=== PATIENT | male | born 1960 | race Two or more races ===

== ENCOUNTER 2018-02-24 13:25 | Emergency (ER) | payer OTHER ==
[~2018-02-24] VITALS: Ht 165.1 cm; Wt 92.1 kg
--- NOTE | 2018-02-24 13:30 | NUR ---
[facility] FROM [facility] FOR SWOLLEN TESTICLES NOTED TODAY. PT HAS A H/O MALIGNANT NEOPLASM OF PROSTATE. A/O X 1, BREATHING EVEN AND UNLABORED. NO SOB, NAD, VITALS STABLE. SAFEY AND COMFORT MEASURES IN PLACE. AWAITING MD ORDERS.
--- NOTE | 2018-02-24 13:55 | NUR ---
NEW IV STARTED ON RAC, 18G. BLOOD DRAWN AND SENT TO LAB.
[2018-02-24] MEDS ORDERED: ACETAMINOPHEN 650 MG/20.3 ML UDC PO ONE (14:30)
[2018-02-24 14:31] LABS: BASOPHILS % (AUTO) 0.3 % (0.0-2.0); EOSINOPHILS % (AUTO) 0.3 % (0.0-6.0); HEMATOCRIT 24 % (39-51); HEMOGLOBIN 8.5 g/dL (13.5-17.5); LYMPHOCYTES # (AUTO) 0.7 /CMM (0.8-4.8); LYMPHOCYTES % (AUTO) 5.5 % (20.0-44.0); MEAN CORPUSCULAR HGB CONC 36 g/dl (31.0-36.0); MEAN CORPUSCULAR VOLUME 82 fL (80-96); MONOCYTES # (AUTO) 1.1 /CMM (0.1-1.30); MONOCYTES % (AUTO) 8.7 % (2.0-12.0); NEUTROPHILS # (AUTO) 10.6 /CMM (1.8-8.9); NEUTROPHILS % (AUTO) 85.2 % (43.0-81.0); PLATELET COUNT (AUTO) 373 /CMM (150-450); RDW COEFFICIENT OF VARIATION 13.3 (11.5-15.0); RED BLOOD CELL COUNT(AUTO) 2.91 MIL/uL (4.5-6.0); WHITE BLOOD COUNT (AUTO) 12.4 K/uL (4.3-11.0)
[2018-02-24] MEDS ORDERED: ACETAMINOPHEN 325 MG TABLET ONE (14:33)
[2018-02-24 14:37] LABS: CALCIUM, SERUM 8.5 mg/dL (8.5-10.1); CARBON DIOXIDE 23 mmol/L (21-32); CHLORIDE 88 mmol/L (98-107); CREATININE 4.4 mg/dL (0.6-1.3); GLUCOSE 137 mg/dL (74-106); POTASSIUM 4.5 mmol/L (3.5-5.1); SODIUM SERUM 123 mmol/L (136-145); UREA NITROGEN, BLOOD 53 mg/dL (7-18)
--- NOTE | 2018-02-24 14:37 | NUR ---
PATIENT MEDICATED PER MD ORDERS.
[2018-02-24 14:40] LABS: INR 1.19 (0.85-1.15)
[2018-02-24 14:42] LABS: ALANINE AMINOTRANSFERASE 18 U/L (12-78); ALBUMIN 2.2 g/dL (3.4-5.0); ALKALINE PHOSPHATASE 149 U/L (46-116); ASPARTATE AMINOTRANSFERASE 31 U/L (15-37); BILIRUBIN,DIRECT 0.3 mg/dL (0.0-0.2); BILIRUBIN,TOTAL 0.5 mg/dL (0.2-1.0); TOTAL PROTEIN, SERUM 7.7 g/dL (6.4-8.2)
[2018-02-24 14:45] LABS: TROPONIN I 0.017 ng/mL (0.00-0.056)
--- NOTE | 2018-02-24 14:58 | NUR ---
PATIENT TAKEN TO CT VIA STRETCHER.
[2018-02-24] MEDS ORDERED: VANCOMYCIN 1 GM in IV D5W 250 ML IV ONE (15:00)
[2018-02-24] MEDS ORDERED: ACETAMINOPHEN 325 MG TABLET PO ONE (15:00)
[2018-02-24] MEDS ORDERED: PIPERACILLIN /TAZOBACTAM 2.25 G in IV D5W 50 ML IV ONE (15:00)
--- NOTE | 2018-02-24 15:06 | NUR ---
PATIENT RETURNED FROM CT IN STABLE CONDITION.
--- NOTE | 2018-02-24 15:29 | NUR ---
US TECH AT BEDSIDE.
--- NOTE | 2018-02-24 15:50 | NUR ---
CALLED [facility]. BROCK IS PAGED PER JIMENA
--- NOTE | 2018-02-24 16:15 | NUR ---
Repaged Dr Krishnan at [facility] Nephrology.
--- NOTE | 2018-02-24 16:38 | NUR ---
Dr Crow on the phone with Dr. Núñez Urology
--- NOTE | 2018-02-24 16:46 | NUR ---
Called Samanta for transportation going to [facility] eta [phone] trip # [id number]
--- NOTE | 2018-02-24 17:03 | NUR ---
Patient going to [facility] Room# 226, accepted by Dr. Adenike Abarca, # for report
--- NOTE | 2018-02-24 17:13 | NUR ---
REPORT GIVEN TO RAJENDRA HARRELL FOR DAMARIS UPON TRANSFER.
[2018-02-24 18:30] VITALS: BP 106/59
--- NOTE | 2018-02-24 18:35 | NUR ---
REPORT GIVEN TO EMT AT BEDSIDE FOR TRANSFER. PATIENT TRANSFERRED TO [facility] VIA AMBULANCE IN STABLE CONDITION.
[2018-03-17] MEDS ORDERED: BICA50TA49 PO (16:04)
== END 2018-02-24 18:35 | disposition short-term general hospital (02) ==
LOC: ER 13:30
DX: N49.2 Inflammatory disorders of scrotum (principal); E87.1 Hypo-osmolality and hyponatremia; N13.39 Other hydronephrosis; N43.3 Hydrocele, unspecified; D64.9 Anemia, unspecified; G40.909 Epilepsy, unspecified, not intractable, without status epilepticus; G30.9 Alzheimer's disease, unspecified; F02.80 Dementia in other diseases classified elsewhere, unspecified severity, without behavioral disturbance, psychotic disturbance, mood disturbance, and anxiety; F20.9 Schizophrenia, unspecified; E78.5 Hyperlipidemia, unspecified; I10 Essential (primary) hypertension; Z85.46 Personal history of malignant neoplasm of prostate; Z85.9 Personal history of malignant neoplasm, unspecified
CPT/HCPCS: 36415; 71045-TC; 76870-TC; 80048-TC; 80076-TC; 83605-TC; 84484-TC; 85025-TC; 85730-TC; 87040-TC; 87081-TC; A4606; J2543; J3370; J7060; Z7610

== ENCOUNTER 2018-03-16 17:50 | Inpatient (IN) | payer OTHER ==
[~2018-03-16] VITALS: Ht 180.3 cm; Wt 86.6 kg
--- NOTE | 2018-03-16 17:50 | NUR ---
[id number] FROM [facility] FOR TWITCHING STARTED 20 MIN AGO. BS-125. UNABLE TO ASSESS MENTAL STATUS, BREATHING EVEN AND UNLABORED. NO SOB, NAD, VITALS STABLE. SAFETY AND COMFORT MEASURES IN PLACE. AWAITING MD ORDERS.
--- NOTE | 2018-03-16 18:05 | NUR ---
MORA CATHETER CHANGED PER DR. REED. NO IMMEDIATE OUTPUT AT THIS TIME. WILL MONITOR.
[2018-03-16] MEDS ORDERED: PIPERACILLIN /TAZOBACTAM 3.375 G in IV D5W 50 ML IV ONE (18:30)
[2018-03-16] MEDS ORDERED: VANCOMYCIN 1 GM in IV D5W 250 ML IV ONE (18:30)
[2018-03-16] MEDS ORDERED: IV NS 0.9% 1,000 ML BAG IV ONE (18:30)
--- NOTE | 2018-03-16 18:30 | NUR ---
SECOND IV STARTED ON RIGHT HAND, 18G. BLOOD DRAWN AND SENT TO LAB.
[2018-03-16] MEDS ORDERED: QUET400T PO (18:36)
[2018-03-16] MEDS ORDERED: SIMV10TA6 PO (18:36)
[2018-03-16] MEDS ORDERED: BISA10SU8 RC (18:36)
[2018-03-16] MEDS ORDERED: MAGN400O6 PO (18:36)
[2018-03-16] MEDS ORDERED: OMEG1CAP PO (18:36)
[2018-03-16] MEDS ORDERED: ACET-868 PO (18:36)
[2018-03-16] MEDS ORDERED: NA P133E RC (18:36)
[2018-03-16] MEDS ORDERED: ZIPR80CA2 PO (18:36)
--- NOTE | 2018-03-16 18:57 | NUR ---
URINE OBTAINED AND SENT TO LAB. ENTRY LEVEL BUSINESS ANALYST AT BEDSIDE.
[2018-03-16 19:08] LABS: APPEARANCE,URINE Clear (CLEAR); BILIRUBIN,URINE Negative (NEGATIVE); BLOOD, URINE Large Ery/uL (NEGATIVE); COLOR,URINE Yellow (YELLOW); KETONES,URINE Negative (NEGATIVE); LEUKOCYTE ESTERASE ,URINE Large (NEGATIVE); NITRITE, URINE Negative (NEGATIVE); PROTEIN,URINE >=300 mg/dl (NEGATIVE); UGLUCOSE Negative (NEGATIVE); UROBILINOGEN,URINE 0.2 EU/dL (0.2)
[2018-03-16 19:11] LABS: BASOPHILS % (AUTO) 0.5 % (0.0-2.0); EOSINOPHILS % (AUTO) 7.8 % (0.0-6.0); LYMPHOCYTES # (AUTO) 0.8 /CMM (0.8-4.8); MEAN CORPUSCULAR HEMOGLOBIN 29 PG (26.0-33.0); MEAN CORPUSCULAR HGB CONC 34 g/dl (31.0-36.0); MEAN CORPUSCULAR VOLUME 86 fL (80-96); MONOCYTES # (AUTO) 0.7 /CMM (0.1-1.30); MONOCYTES % (AUTO) 8.3 % (2.0-12.0); NEUTROPHILS # (AUTO) 6.6 /CMM (1.8-8.9); NEUTROPHILS % (AUTO) 74.4 % (43.0-81.0); PLATELET COUNT (AUTO) 510 /CMM (150-450); RDW COEFFICIENT OF VARIATION 15.8 (11.5-15.0); RED BLOOD CELL COUNT(AUTO) 2.26 MIL/uL (4.5-6.0); WHITE BLOOD COUNT (AUTO) 8.8 K/uL (4.3-11.0)
[2018-03-16 19:17] LABS: HEMOGLOBIN 6.5 g/dL (13.5-17.5)
--- NOTE | 2018-03-16 19:17 | NUR ---
CALLED [facility] MATERIALS DEVELOPMENT ENGINEER WAS PAGED.
[2018-03-16 19:18] LABS: HEMATOCRIT 19 % (39-51)
[2018-03-16 19:36] LABS: ALANINE AMINOTRANSFERASE 79 U/L (12-78); ALBUMIN 2.1 g/dL (3.4-5.0); ALKALINE PHOSPHATASE 190 U/L (46-116); ASPARTATE AMINOTRANSFERASE 53 U/L (15-37); BILIRUBIN,DIRECT 0.1 mg/dL (0.0-0.2); BILIRUBIN,TOTAL 0.3 mg/dL (0.2-1.0); CALCIUM, SERUM 7.8 mg/dL (8.5-10.1); CARBON DIOXIDE 15 mmol/L (21-32); CHLORIDE 105 mmol/L (98-107); GLUCOSE 112 mg/dL (74-106); SODIUM SERUM 137 mmol/L (136-145); TOTAL PROTEIN, SERUM 7.5 g/dL (6.4-8.2)
[2018-03-16 19:37] LABS: TROPONIN I < 0.017 ng/mL (0.00-0.056)
--- NOTE | 2018-03-16 19:38 | NUR ---
CALLED [facility] NEPHROLOGY , ICT QUALITY ASSURANCE ENGINEER WAS PAGED.
[2018-03-16 19:41] LABS: CREATININE 16.5 mg/dL (0.6-1.3); POTASSIUM 6.9 mmol/L (3.5-5.1); UREA NITROGEN, BLOOD 130 mg/dL (7-18)
--- NOTE | 2018-03-16 19:45 | NUR ---
ASSUMED CARE. RECEIVED REPORT FROM AM SHIFT SHARRI MEIER. PT OBTUNDED, NO ACUTE DOSTRESS NOTED, RESP EVEN AND UNLABORED. PT REMAINS ON CARDIAC MONITORING, CONTINUOUS POX, O2@2l/NC. CALL OIGHT WITHIN REACH. WILL CONTINUE TO MONITOR PT CLOSELY.
[2018-03-16 19:50] LABS: BACTERIA,URINE Moderate /HPF (None Seen); RBC,URINE 21-50 /HPF (0-2); WBC,URINE 81-100 /HPF (0-3)
[2018-03-16 19:51] LABS: SQUAMOUS EPITHELIAL CELL,UR Few /HPF (None Seen); URINE AMORPHOUS URATE Moderate /HPF (None Seen)
--- NOTE | 2018-03-16 20:10 | NUR ---
ER MD SPOKE TO DR. MAKI REGARDING PT ADMISSION.
[2018-03-16 20:26] LABS: INR 1.15 (0.85-1.15)
[2018-03-16] MEDS ORDERED: SODIUM POLYSTYRENE SULFONATE 15 G/60 ML BOTTLE PO ONE (20:30)
[2018-03-16] MEDS ORDERED: Z GUARD REMEDY 2 OZ OINT TP PRN (20:30)
[2018-03-16] MEDS ORDERED: MAGNESIUM HYDROXIDE 30 ML UDC PO PRN (20:30)
[2018-03-16] MEDS ORDERED: MAG HYDROX/AL HYDROX/SIMETH 30 ML UDC PO PRN (20:30)
[2018-03-16] MEDS ORDERED: ACETAMINOPHEN 325 MG TABLET PO PRN (20:30)
[2018-03-16] MEDS ORDERED: IV NS 0.9% 1,000 ML IV PRN (20:30)
[2018-03-16] MEDS ORDERED: ONDANSETRON HCL/PF 4 MG/2 ML VIAL IVP PRN (20:30)
--- NOTE | 2018-03-16 20:36 | NUR ---
PT TRANSPORTED TO RADIOLOGY FOR CT ABD/PELVIS.
--- NOTE | 2018-03-16 20:43 | NUR ---
REPORT CALLED TO TELE 1 SHARRI MARTINEZ. WILL TRANSPORT PT VIA ACLS PROTOCOL.
[2018-03-16] MEDS ORDERED: SODIUM POLYSTYRENE SULFONATE 15 G/60 ML BOTTLE ONE (20:53)
--- NOTE | 2018-03-16 21:03 | NUR ---
PT MEDICATED KAYEXALATE 30GM VIA MN DUE TO PT ALTERED AND UNALBE TO TAKE PO MEDS.
--- NOTE | 2018-03-16 21:14 | NUR ---
PT TRANSPORTED TO TELE 1 VIA ACLS PROTOCOL.
[2018-03-16 21:41] LABS: LYMPHOCYTES % (MANUAL) 16 % (16-48); NEUTROPHILS % (MANUAL) 72 (42-76)
[2018-03-16 21:42] LABS: EOSINOPHILS % (MANUAL) 6 % (0-4); MONOCYTES % (MANUAL) 6 % (0-11.0)
[2018-03-16 21:45] VITALS: BP 127/62
[2018-03-16 22:04] VITALS: BP 100/53
[2018-03-16 22:20] VITALS: BP 98/48
--- NOTE | 2018-03-16 22:30 | NUR ---
ELZA/COTTON CLASSER AIDE NOTES: RECEIVED PT. VIA STRETCHER W/ RN CLAUDETTE AND Jaycob GÓMEZ. PT. IS NON VERBAL, LETHARGIC. RESPONSIVE ONLY TO PAINFUL STIMULI. ON TELE MONITOR W/ SR @ 73. NO FACIAL GRIMACES OR MOANING NOTED. W/ HL ON R AND L HAND G 18 PATENT AND INTACT W/ NO S/S OF INFECTION/INFILTRATION NOTED. W/ O2 @ 2LPM VIA N/C SAT. 97 %. W/ SCROTUM EDEMATOUS. BEDS LOCKED AND IN LOW POSITION. SIDE RAILS PADDED DUE TO SEIZURE PRECAUTION. TRANSFUSED 1 UNIT OF PRBC DUE TO HgB 6.5. NO ADVERSE REACTIONS NOTED. KAYEXALATE GIVEN RECTALLY FOR K 6.9 DR. MAKI AWARE OF PT. LAB VALUES. SISTER OLGA LIDIA VISITED PT. CALL LIGHT W/ REACH. WILL CONTINUE TO MONITOR.
--- NOTE | 2018-03-16 22:32 | NUR ---
Paged Dr. Heath at this time to update on patient's current condition and for orders. Awaiting call back.
[2018-03-16 22:34] VITALS: BP 99/47
[2018-03-16 22:45] VITALS: BP 106/52
--- NOTE | 2018-03-16 22:46 | NUR ---
2239 Dr. Heath called and updated on patient's current condition including neuro status GCS=8, urine outuput of 100ml since pt. came from ED and latest lab results with order to draw stat K+ level and to start pt. on IVF of NS at 100ml/hr, notified her also that blood transfusion is in progress. ELZA status verified with MD, and she said keep pt. in ELZA.
[2018-03-16 23:00] VITALS: BP 111/57
[2018-03-16] MEDS ORDERED: IV NS 0.9% 1,000 ML BAG IV PRN (23:00)
[2018-03-16] MEDS ORDERED: Sodium Bicarbonate 150 MEQ in IV NS 0.9% 1,000 ML IV PRN (23:00)
[2018-03-16] MEDS ORDERED: Calcium Gluconate 1GM/10ML 4.65 MEQ in IV NS 0.9% 50 ML IV ONE (23:00)
[2018-03-16] MEDS ORDERED: Calcium Gluconate 0.465 MEQ/ML VIAL IV ONE (23:46)
[2018-03-16] MEDS ORDERED: SODIUM BICARBONATE SYR 50 MEQ/50 ML DISP.SYRIN ONE (23:47)
[2018-03-17] VITALS (7 sets, daily range): BP systolic 101–139; BP diastolic 57–69
[2018-03-17] MEDS ORDERED: SODIUM POLYSTYRENE SULFONATE 15 G/60 ML BOTTLE RC ONE (00:30)
[2018-03-17] MEDS ORDERED: SODIUM POLYSTYRENE SULFONATE 15 G/60 ML BOTTLE ONE (00:40)
--- NOTE | 2018-03-17 06:00 | NUR ---
ELZA/RN NOTES: PT. MORE ALERT AND VERBALLY RESPONSIVE. WILL CONTINUE TO MONITOR.
[2018-03-17 06:31] LABS: BASOPHILS % (AUTO) 0.5 % (0.0-2.0); EOSINOPHILS % (AUTO) 9.7 % (0.0-6.0); HEMATOCRIT 22 % (39-51); HEMOGLOBIN 7.2 g/dL (13.5-17.5); LYMPHOCYTES # (AUTO) 0.7 /CMM (0.8-4.8); LYMPHOCYTES % (AUTO) 9.2 % (20.0-44.0); MEAN CORPUSCULAR HEMOGLOBIN 30 PG (26.0-33.0); MEAN CORPUSCULAR HGB CONC 34 g/dl (31.0-36.0); MEAN CORPUSCULAR VOLUME 88 fL (80-96); MONOCYTES # (AUTO) 0.8 /CMM (0.1-1.30); MONOCYTES % (AUTO) 9.5 % (2.0-12.0); NEUTROPHILS # (AUTO) 5.7 /CMM (1.8-8.9); NEUTROPHILS % (AUTO) 71.1 % (43.0-81.0); PLATELET COUNT (AUTO) 460 /CMM (150-450); RDW COEFFICIENT OF VARIATION 16.4 (11.5-15.0); RED BLOOD CELL COUNT(AUTO) 2.45 MIL/uL (4.5-6.0)
[2018-03-17 07:16] LABS: CALCIUM, SERUM 8.2 mg/dL (8.5-10.1); MAGNESIUM 2.7 mg/dL (1.8-2.4)
[2018-03-17 07:17] LABS: CREATININE 16.7 mg/dL (0.6-1.3)
--- NOTE | 2018-03-17 07:18 | NUR ---
ELZA/RN NOTES: NO ACUTE CHANGES NOTES DURING THIS SHIFT. REPORT GIVEN TO AM NURSE FOR DAMARIS.
--- NOTE | 2018-03-17 07:30 | NUR ---
INITIAL NOTES: PT ALERT AND ORIENTED X1 ON BED ASLEEP BUT EASILY AROUABLE. ON 2 LMP NC LABS UPDATED THIS AM AFTER MEDICATIONS WILL NOTIFIY . PT ON RN HEDIS SR AT 75. PT HAS NEPHROSTOMY TUBES BILATERALLY. WITH LEFT DRAINAGE BAG PINEDO COLORED 20 ML AND RIGHT TUBE BLOOD COLORED 5 ML. MORA HAS CLEAR URINE YELLOW 15 ML. BED IN LOW POSITION LOCKED AND CALL CHANG NEXT TO PT. WILL CONTINUE TO MONITOR.
[2018-03-17 07:40] LABS: PHOSPHORUS 10.4 mg/dL (2.5-4.9); POTASSIUM 6.5 mmol/L (3.5-5.1)
[2018-03-17] MEDS ORDERED: IV NS 0.9% 1,000 ML IV PRN (08:30)
[2018-03-17] MEDS: PIPERACILLIN /TAZOBACTAM 2.25 G in IV NS 0.9% 50 ML IV SCH ×2 (10:00→18:12)
--- NOTE | 2018-03-17 10:49 | NUR ---
SPOKE WITH CHRISTOPH TO PLACE HD CATH FOR DIALYSIS TODAY. CALED SISTER BEE AND DAYAN FOE CONSENT WAITING FOR CALL BACK. HD CATH 13X24 CM AT BEDSIDE.
--- NOTE | 2018-03-17 11:05 | NUR ---
SISTER GAVE CONSENT IN CHART CHRISTOPH TEXTED WITH OBTAINMENT OF CONSENT
[2018-03-17] MEDS ORDERED: PIPERACILLIN /TAZOBACTAM 4.5 G in IV NS 0.9% 50 ML IV SCH (12:00)
--- NOTE | 2018-03-17 15:41 | NUR ---
SAAD received a call from pt's RN Jay informing SW to speak to the pt's sister and to clarify if pt. has a power of assistant prosecuting attorney. SAAD met with pt's sister Radha and Viktoriya ([facility]) bedside. Pt. is developmentally delayed and has Schizophrenia. According to Radha pt. is with the [facility] and his Agricultural And Forestry Supervisor is Lu Arcos . SAAD inquired with the sister if Lu is the conservator since most of the [facility] clients are conserved. Lu informed SW she is not sure if the [facility] is the conservator. SAAD requested for Radha to call Lu to get some clarity. Radha contacted Lu and left her a voicemail message requesting a call back regarding clarification.
[2018-03-17] MEDS ORDERED: CHOL200026 PO (16:04)
[2018-03-17] MEDS ORDERED: DONE10TA44 PO (16:04)
[2018-03-17] MEDS ORDERED: ASPI-1169 PO (16:04)
[2018-03-17] MEDS ORDERED: MULT-213 PO (16:04)
[2018-03-17] MEDS ORDERED: LAMO150T PO (16:04)
[2018-03-17] MEDS ORDERED: MEMA10TA PO (16:04)
[2018-03-17] MEDS ORDERED: BICA50TA2 PO (16:04)
[2018-03-17] MEDS ORDERED: METO-356 PO (16:04)
--- NOTE | 2018-03-17 19:19 | NUR ---
CLOSING NOTE: PT MORE AWAKE GREETS YOU AT THE DOOR STATES HE IS FEELING BETTER. PT HAS HD CATH 13X24 [address] IN RIGHT GROIN TODAY AND DIALYSIZED FOR 500 ML. RN REPORT GIVEN TO JUNG NURSE CULINARY CHEF AT [facility] AT 1821. PT PIV LINES INTACT NO SWELLING OR REDNESS ON NS DRIP. BED IN LOW POSITION LOCKED.
--- NOTE | 2018-03-17 19:30 | NUR ---
ELZA/RN NOTES: RECEIVED PT. IN BED W/ HOB ELEVATED W/ O2 @ 2LPM VIA N/C SAT. 93-94 %. ALERT X 1-2. VERBALLY RESPONSIVE. DENIES ANY C/O CHEST PAIN OR SOB AT PRESENT. NO FACIAL GRIMACES OR MOANING NOTED. LEFT HAND G 18 PATENT AND INTACT W/ NS @ 100 CC/HR GOING W/ NO S/S OF INFECTION/INFILTRATION NOTED. HAS RIGHT WRIST AND HAND G 18 PATENT AND INTACT W/ NO S/S OF INFECTION/INFILTRATION NOTED. HAS LEFT AND RIGHT CHEST NEPHROSTOMY TUBE W/ RIGHT SIDE SEROSANGUINEOUS FLUID AND LEFT SIDE HAS LIGHT MUDDY COLOR FLUID. HAS A F/C PATENT AND INTACT DRAINING VIA GRAVITY YELLOW URINE. SCROTUM NOTED W/ 4+ EDEMA. CALL LIGHT W/ REACH. ALL NEEDS MEET. BED LOCKED. WILL CONTINUE TO MONITOR.
--- NOTE | 2018-03-17 21:47 | NUR ---
RN NOTE Called [facility] to follow-up on the patient's transport. Reference # [id number]. Was able to speak with Annette from dispatch, Per Annette, ETA is another hour. noted. primary nurse, Erlinda made aware.
--- NOTE | 2018-03-17 23:25 | NUR ---
ELZA/RN NOTES: PARAMEDICS CAME .PT. DISCHARGED IN STABLE CONDITION VIA STRETCHER.
== END 2018-03-17 23:45 | disposition short-term general hospital (02) | DRG 673 ==
LOC: ER 17:56 → TELE-TD 20:29
PROVIDERS: ADMIT Internal Medicine; ATTEND Internal Medicine
PROC: 0JHN3WZ Insertion of Totally Implantable Vascular Access Device into Right Lower Leg Subcutaneous Tissue and Fascia, Percutaneous Approach (ICD-10-PCS; principal; 2018-03-17)
PROC: 06HM33Z Insertion of Infusion Device into Right Femoral Vein, Percutaneous Approach (ICD-10-PCS; 2018-03-17)
PROC: B54BZZA Ultrasonography of Right Lower Extremity Veins, Guidance (ICD-10-PCS; 2018-03-17)
DX: N17.9 Acute kidney failure, unspecified (principal); G93.41 Metabolic encephalopathy; E43 Unspecified severe protein-calorie malnutrition; N39.0 Urinary tract infection, site not specified; J81.1 Chronic pulmonary edema; C79.51 Secondary malignant neoplasm of bone; N13.39 Other hydronephrosis; Z79.82 Long term (current) use of aspirin; F02.80 Dementia in other diseases classified elsewhere, unspecified severity, without behavioral disturbance, psychotic disturbance, mood disturbance, and anxiety; G40.909 Epilepsy, unspecified, not intractable, without status epilepticus; G30.9 Alzheimer's disease, unspecified; F20.9 Schizophrenia, unspecified; Z79.899 Other long term (current) drug therapy; N13.30 Unspecified hydronephrosis; K21.9 Gastro-esophageal reflux disease without esophagitis; B96.89 Other specified bacterial agents as the cause of diseases classified elsewhere; N50.89 Other specified disorders of the male genital organs; R62.50 Unspecified lack of expected normal physiological development in childhood; M85.9 Disorder of bone density and structure, unspecified; I12.9 Hypertensive chronic kidney disease with stage 1 through stage 4 chronic kidney disease, or unspecified chronic kidney disease; N18.9 Chronic kidney disease, unspecified; C61 Malignant neoplasm of prostate; Z93.6 Other artificial openings of urinary tract status; N13.1 Hydronephrosis with ureteral stricture, not elsewhere classified; D63.8 Anemia in other chronic diseases classified elsewhere; E83.39 Other disorders of phosphorus metabolism; E78.5 Hyperlipidemia, unspecified; E87.5 Hyperkalemia
CPT/HCPCS: 36415; 71045-TC; 80048-TC; 80074; 80076-TC; 81000-TC; 83605-TC; 83735-TC; 84100-TC; 84132-TC; 84484-TC; 85025-TC; 85730-TC; 86706; 86709-TC; 86850-TC; 86921-TC; 87040-TC; 87081-TC; 87086-TC; 87186-TC; 87340; 90935-TC; A4216; A4606; J0610; J2543; J3370; J3490; J7030; J7040; J7050; J7060; P9016-BL; Z7610